=== PATIENT | male | born 1955 | race Asian ===

== ENCOUNTER 2019-02-17 15:54 | Emergency (ER) | payer BC ==
[~2019-02-17] VITALS: Ht 172.7 cm; Wt 81.6 kg
[2019-02-17 16:05] VITALS: BP_SYST 151
--- NOTE | 2019-02-17 16:10 | NUR ---
Patient to ER bed 6 to gown for evaluation. Side rails up. Report given to BORA Dobbs.
--- NOTE | 2019-02-17 16:11 | NUR ---
Patient is awake, alert, and oriented x4. 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 Patient presents with left wrist pain 6/10, pain made worse on movement.
--- NOTE | 2019-02-17 16:12 | NUR ---
GEORGE Grewal at bedside examining patient.
--- NOTE | 2019-02-17 16:33 | NUR ---
Report given to BORA Grewal for continuation of care.
--- NOTE | 2019-02-17 16:43 | NUR ---
Patient given written and verbal discharge instructions and verbalizes understanding. ER MD Grewal discussed with patient the results and treatment provided. Patient in stable condition. ID arm band removed. Rx of Naproxen given. Patient educated on pain management and to follow up with PMD. Pain Scale 0. Opportunity for questions provided and answered. Medication side effect fact sheet provided.
[2019-02-17 16:44] VITALS: BP_SYST 148
== END 2019-02-17 16:43 | disposition home or self-care (01) ==
LOC: SED 15:54
DX: G56.02 Carpal tunnel syndrome, left upper limb (principal)
CPT/HCPCS: 99283